=== PATIENT | male | born 1945 | race Caucasian/White ===

== ENCOUNTER → 2024-10-28 09:30 | Outpatient (CLI) | payer MEDICARE, SELFPAY ==
[2024-10-29 07:09] LABS: PSA Free % 23.4 % (.); PSA, Total 5.8 ng/mL (0.0-4.0)
== END ==
PROVIDERS: PCP Physician Assistant; Referring Provider Urology; Visit Provider Urology
DX: R97.20 Elevated prostate specific antigen [PSA] (principal)
CPT/HCPCS: 36415; 84153; 84154

== ENCOUNTER → 2025-04-27 12:42 | Outpatient (CLI) | payer MEDICARE, SELFPAY | PROVIDERS: PCP Physician Assistant; Referring Provider Urology; Visit Provider Urology | DX: R97.20 Elevated prostate specific antigen [PSA] (principal) | CPT/HCPCS: 36415; 84153; 84154 ==